=== PATIENT | male | born 1950 | race Caucasian/White ===

== ENCOUNTER 2021-05-26 18:33 | Emergency (ER) | payer MEDICARE, SELFPAY ==
[2021-05-26] MEDS ORDERED: Acetaminophen 500 MG Tab PO ONE (19:19)
[2021-05-26] MEDS ORDERED: Sodium Chloride 0.9% 1,000 ML IV ONE (19:20)
--- NOTE | 2021-05-26 19:25 | EDM.PDOC ---
ED HPI GENERAL MEDICAL PROBLEM - General Chief Complaint: General Stated Complaint: CONFUSSION Time Seen by Provider: 05/26/21 19:00 Source of Information: Reports: Patient, Family History Limitations: Reports: No Limitations - History of Present Illness INITIAL COMMENTS - FREE TEXT/NARRATIVE: c/o fever onset fever at 4p, lives alone, niece lives 2 doors down and brings him to ED, said he seemed mildly confused has had COVID vax x 2, no booster, not had flu vax this yr h/o pneumonia many times as child, not as adult, no cough, never smoked no prior CV ds, no DE onset fever at 4p today, felt weak, niece persuaded him to come to ED Ox3 without overt confusion here, denies pain, no n/v - Related Data Allergies Allergy/AdvReac Type Severity Reaction Status Date / Time No Known Allergies Allergy Verified 09/17/13 13:49 Home Meds: Home Meds Amoxicillin/Potassium Clav [Augmentin 875-125 Tablet] 1 each PO BID #14 tablet 05/26/21 [Rx] Past Medical History - Past Health History Medical/Surgical History: Denies Medical/Surgical History ED ROS GENERAL - Review of Systems Review Of Systems: See Below Constitutional: Reports: Fever, Fatigue HEENT: Reports: No Symptoms Respiratory: Reports: No Symptoms. Denies: Shortness of Breath Cardiovascular: Reports: No Symptoms. Denies: Chest Pain Endocrine: Reports: No Symptoms GI/Abdominal: Reports: No Symptoms : Reports: No Symptoms Musculoskeletal: Reports: No Symptoms Skin: Reports: No Symptoms Neurological: Reports: No Symptoms Psychiatric: Reports: No Symptoms Hematologic/Lymphatic: Reports: No Symptoms Immunologic: Reports: No Symptoms ED EXAM, GENERAL - Physical Exam Exam: See Below Exam Limited By: No Limitations General Appearance: Alert, WD/WN, No Apparent Distress, Other (quite pleasant, good eye contact, conversant, no dyspnea) Eye Exam: Bilateral Eye: EOMI, Normal Inspection, PERRL Ears: Normal External Exam Nose: Normal Inspection, Normal Mucosa, No Blood Throat/Mouth: Normal Inspection, Normal Lips, Normal Teeth, Normal Gums, Normal Oropharynx, Normal Voice Head: Atraumatic, Normocephalic Neck: Normal Inspection, Supple, Non-Tender, Full Range of Motion Respiratory/Chest: No Respiratory Distress, Lungs Clear, Normal Breath Sounds, No Accessory Muscle Use, Chest Non-Tender Cardiovascular: Regular Rate, Rhythm, No Edema, Other (mild tachy) GI/Abdominal: Soft, Non-Tender, No Distention Back Exam: Normal Inspection, Full Range of Motion. No: CVA Tenderness (R), CVA Tenderness (L) Extremities: Normal Inspection, Normal Range of Motion, Non-Tender, No Pedal Edema Neurological: Alert, Oriented, CN II-XII Intact, Normal Cognition, Normal Gait, No Motor/Sensory Deficits Psychiatric: Normal Affect, Normal Mood Skin Exam: Warm, Dry, Intact, Normal Color, No Rash Lymphatic: No Adenopathy Course - Vital Signs Last Recorded V/S: Last Vital Signs Temp 38.4 C H 05/26/21 19:25 Pulse 115 H 05/26/21 18:59 Resp 16 05/26/21 18:59 BP 194/124 H 05/26/21 18:59 Pulse Ox 95 05/26/21 18:59 - Orders/Labs/Meds Orders: Active Orders 24 hr Category Date Time Status Chest 2V [CR] Stat Exams 05/26/21 19:17 Ordered CORONAVIRUS COVID-19 AR [MOLEC] Stat Lab 05/26/21 20:58 Ordered CULTURE BLOOD [BC] Urgent Lab 05/26/21 19:56 Received CULTURE BLOOD [BC] Urgent Lab 05/26/21 20:01 Received Blood Culture x2 Reflex Set [OM.PC] Urgent Oth 05/26/21 19:17 Ordered Isolation [COMM] Routine Oth 05/26/21 19:18 Ordered EKG 12 Lead [EK] Routine Ther 05/26/21 19:17 Ordered Labs: Laboratory Tests 05/26/21 05/26/21 05/26/21 Range/Units 19:56 19:56 19:56 WBC 10.4 H (3.2-10.1) x10-3/uL RBC 4.21 (3.90-5.90) x10(6)uL Hgb 14.7 (12.9-17.7) g/dL Hct 43.7 (38.3-50.1) % MCV 103.7 H (80.8-98.7) fL MCH 34.9 H (27.0-33.3) pg MCHC 33.6 (28.7-35.3) g/dL RDW 12.8 (12.4-15.0) % Plt Count 220 (117-477) x10(3)uL MPV 6.8 (6.7-11.0) fL Neut % (Auto) 88.6 H (40.3-71.8) % Lymph % (Auto) 4.3 L (15.8-45.3) % Newton % (Auto) 6.0 (5.5-15.2) % Eos % (Auto) 0.3 (0.1-6.8) % Baso % (Auto) 0.8 (0.3-3.8) % Neut # (Auto) 9.2 H (1.7-6.9) x10-3/uL Lymph # (Auto) 0.4 L (0.5-4.5) x10-3/uL Newton # (Auto) 0.6 (0.0-1.2) x10-3/uL Eos # (Auto) 0.0 (0.0-0.6) x10-3/uL Baso # (Auto) 0.1 (0.0-0.3) x10-3/uL Sodium 136 (135-145) mmol/L Potassium 3.8 (3.5-5.3) mmol/L Chloride 101 (100-110) mmol/L Carbon Dioxide 22 (21-32) mmol/L BUN 15 (7-18) mg/dL Creatinine 1.5 H (0.70-1.30) mg/dL Est Cr Clr Drug Dosing 44.51 mL/min Estimated GFR (MDRD) 46 L (>60) BUN/Creatinine Ratio 10.0 (9-20) Glucose 106 (80-116) mg/dL Lactic Acid (0.4-2.0) mmol/L Calcium 8.4 L (8.6-10.2) mg/dL Total Bilirubin 1.1 (0.1-1.3) mg/dL AST 35 H (5-25) IU/L ALT 60 H (12-36) U/L Alkaline Phosphatase 83 (56-112) IU/L Troponin I 13.6 (4.0-60.3) pg/mL C-Reactive Protein 1.2 H (0.5-0.9) mg/dL Total Protein 7.0 (6.0-8.0) g/dL Albumin 3.7 (3.2-4.6) g/dL Globulin 3.3 g/dL Albumin/Globulin Ratio 1.1 Urine Color (YELLOW) Urine Appearance (CLEAR) Urine pH (5.0-6.5) Ur Specific Victor (1.010-1.025) Urine Protein (NEGATIVE) mg/dL Urine Glucose (UA) (NORMAL) mg/dL Urine Ketones (NEGATIVE) mg/dL Urine Occult Blood (NEGATIVE) Urine Nitrite (NEGATIVE) Urine Bilirubin (NEGATIVE) Urine Urobilinogen (NEGATIVE) mg/dL Ur Leukocyte Esterase (NEGATIVE) Urine RBC (0-5) Urine WBC (0-5) Ur Squamous Epith Cells (NS,R,O) Urine Bacteria (NS) 05/26/21 05/26/21 Range/Units 19:56 20:25 WBC (3.2-10.1) x10-3/uL RBC (3.90-5.90) x10(6)uL Hgb (12.9-17.7) g/dL Hct (38.3-50.1) % MCV (80.8-98.7) fL MCH (27.0-33.3) pg MCHC (28.7-35.3) g/dL RDW (12.4-15.0) % Plt Count (117-477) x10(3)uL MPV (6.7-11.0) fL Neut % (Auto) (40.3-71.8) % Lymph % (Auto) (15.8-45.3) % Newton % (Auto) (5.5-15.2) % Eos % (Auto) (0.1-6.8) % Baso % (Auto) (0.3-3.8) % Neut # (Auto) (1.7-6.9) x10-3/uL Lymph # (Auto) (0.5-4.5) x10-3/uL Newton # (Auto) (0.0-1.2) x10-3/uL Eos # (Auto) (0.0-0.6) x10-3/uL Baso # (Auto) (0.0-0.3) x10-3/uL Sodium (135-145) mmol/L Potassium (3.5-5.3) mmol/L Chloride (100-110) mmol/L Carbon Dioxide (21-32) mmol/L BUN (7-18) mg/dL Creatinine (0.70-1.30) mg/dL Est Cr Clr Drug Dosing mL/min Estimated GFR (MDRD) (>60) BUN/Creatinine Ratio (9-20) Glucose (80-116) mg/dL Lactic Acid 0.9 (0.4-2.0) mmol/L Calcium (8.6-10.2) mg/dL Total Bilirubin (0.1-1.3) mg/dL AST (5-25) IU/L ALT (12-36) U/L Alkaline Phosphatase (56-112) IU/L Troponin I (4.0-60.3) pg/mL C-Reactive Protein (0.5-0.9) mg/dL Total Protein (6.0-8.0) g/dL Albumin (3.2-4.6) g/dL Globulin g/dL Albumin/Globulin Ratio Urine Color Yellow (YELLOW) Urine Appearance Clear (CLEAR) Urine pH 5.0 (5.0-6.5) Ur Specific Victor 1.030 H (1.010-1.025) Urine Protein Negative (NEGATIVE) mg/dL Urine Glucose (UA) Normal (NORMAL) mg/dL Urine Ketones 15 H (NEGATIVE) mg/dL Urine Occult Blood Negative (NEGATIVE) Urine Nitrite Negative (NEGATIVE) Urine Bilirubin Negative (NEGATIVE) Urine Urobilinogen Normal (NEGATIVE) mg/dL Ur Leukocyte Esterase Negative (NEGATIVE) Urine RBC 0-5 (0-5) Urine WBC 0-5 (0-5) Ur Squamous Epith Cells Rare (NS,R,O) Urine Bacteria Few H (NS) Meds: Medications Discontinued Medications Generic Name Dose Route Start Last Admin Trade Name Freq PRN Reason Stop Dose Admin Acetaminophen 1,000 mg 05/26/21 19:19 05/26/21 19:25 Acetaminophen 500 Mg Tab PO 05/26/21 19:20 1,000 mg ONETIME ONE Administration Sodium Chloride 1,000 mls @ 999 mls/hr 05/26/21 19:20 05/26/21 19:25 Normal Saline IV 05/26/21 20:20 999 mls/hr .BOLUS ONE Administration - Re-Assessments/Exams Free Text/Narrative Re-Assessment/Exam: 05/26/21 21:12 flu test neg, COVID pending pt left AMA, refused head CT, refused CxR, could not be persuaded otherwise niece says he has 1-2 drinks/d altho it is likely that he drinks a lot more EKG 05-26-21 at 19:45 with sinus tach, rate 109, no acute ST changes, no ischemia, no ectopy Departure - Departure Time of Disposition: 21:04 Disposition: Home, Self-Care 01 Condition: Good, Serious Clinical Impression: Fever, Confusion, Left against medical advice, Elevated blood pressure reading, Sinus tachycardia - Discharge Information *PRESCRIPTION DRUG MONITORING PROGRAM REVIEWED*: Not Applicable *COPY OF PRESCRIPTION DRUG MONITORING REPORT IN PATIENT HARISH: Not Applicable Prescriptions: Amoxicillin/Potassium Clav [Augmentin 875-125 Tablet] 1 each PO BID #14 tablet Instructions: Confusion, Fever, Adult Referrals: Ke Santamaria MD [Primary Care Provider] - Forms: ED Department Discharge Additional Instructions: You are leaving the Emergency Department against medical advice. Additional tests need to be done to determine the cause of the fever so that you receive the right treatment. You have had confusion as a result of being ill and my have a brain abscess or brain tumor or other serious life threatening illness. It is dangerous to be home alone when you have confusion. You should not drink alcohol as your risk of falling and sustaining a serious injury is very high. A prescription for the antibiotic Augmentin one tab 2 times a day for 7 days has been sent to your pharmacy. It is unknown whether this is the right antibiotic or whether you even need an antibiotic. Additional tests can be done in the Emergency Department if you are willing to have them done. You can and should return to the Emergency Department at any time for additional tests and evaluation. Sepsis Event Note (ED) - Evaluation Sepsis Screening Result: No Definite Risk - Focused Exam Vital Signs: Vital Signs Temp Temp Pulse Resp BP Pulse Ox 05/26/21 19:25 38.4 C H 05/26/21 18:59 38.4 C H 115 H 16 194/124 H 95 - My Orders Last 24 Hours: My Active Orders 05/26/21 19:17 Chest 2V [CR] Stat Blood Culture x2 Reflex Set [OM.PC] Urgent EKG 12 Lead [EK] Routine 05/26/21 19:18 Isolation [COMM] Routine 05/26/21 19:56 CULTURE BLOOD [BC] Urgent 05/26/21 20:01 CULTURE BLOOD [BC] Urgent 05/26/21 20:58 CORONAVIRUS COVID-19 AR [MOLEC] Stat - Assessment/Plan Last 24 Hours: My Active Orders 05/26/21 19:17 Chest 2V [CR] Stat Blood Culture x2 Reflex Set [OM.PC] Urgent EKG 12 Lead [EK] Routine 05/26/21 19:18 Isolation [COMM] Routine 05/26/21 19:56 CULTURE BLOOD [BC] Urgent 05/26/21 20:01 CULTURE BLOOD [BC] Urgent 05/26/21 20:58 CORONAVIRUS COVID-19 AR [MOLEC] Stat
[2021-05-26] MEDS ORDERED: Amoxicillin/Clavulanate K 875-125 MG Tab PO ONE (21:05)
== END 2021-05-26 21:25 | disposition left against medical advice (07) ==
LOC: FB.ED 18:33
DX: R50.9 Fever, unspecified (principal); R00.0 Tachycardia, unspecified; R41.0 Disorientation, unspecified; I10 Essential (primary) hypertension; Z53.8 Procedure and treatment not carried out for other reasons
CPT/HCPCS: 36415; 80053; 81001; 83605; 84484; 85025; 86140; 87040; 87804; 93005; 99285; A9270; J7030; U0002

== ENCOUNTER 2024-09-02 07:49 | Emergency (ER) | payer MEDICARE, MEDICAID ==
[2024-09-02] MEDS ORDERED: Sulfamethoxazole/Trimethoprim 800-160 MG Tab PO ONE (07:50)
[2024-09-02] MEDS: Ketorolac 30 MG/ML SDV IM ONE (08:28)
[2024-09-02 08:31] LABS: BASOPHILS PERCENT AUTO 0.1 % (0.3-3.8); EOSINOPHILS PERCENT AUTO 0.1 % (0.1-6.8); HEMOGLOBIN 18.8 g/dL (12.9-17.7); LYMPHOCYTES ABSOLUTE AUTO 0.8 x10-3/uL (0.5-4.5); LYMPHOCYTES PERCENT AUTO 7.9 % (15.8-45.3); MEAN CORPUSCULAR HEMOGLOBIN 38.8 pg (27.0-33.3); MEAN CORPUSCULAR HGB CONC 34.9 g/dL (28.7-35.3); MEAN CORPUSCULAR VOLUME 111.1 fL (80.8-98.7); MEAN PLATELET VOLUME 7.4 fL (6.7-11.0); MONOCYTES PERCENT AUTO 9.5 % (5.5-15.2); NEUTROPHILS ABSOLUTE AUTO 8.5 x10-3/uL (1.7-6.9); NEUTROPHILS PERCENT AUTO 82.4 % (40.3-71.8); PLATELET COUNT,PLT 207 x10(3)uL (117-477); RED CELL DISTRIBUTION WIDTH 14.3 % (12.4-15.0); WHITE BLOOD CELL COUNT,WBC 10.3 x10-3/uL (3.2-10.1)
[2024-09-02 08:33] LABS: BLOOD UREA NITROGEN,BUN 12 mg/dL (7-18); BUN/CREATININE RATIO 9.2 (9-20); CARBON DIOXIDE,CO2 26 mmol/L (21-32); CHLORIDE,CL 98 mmol/L (100-110); CREATININE 1.3 mg/dL (0.70-1.30); ESTIMATED GFR 57 mL/min (>60); GLUCOSE RANDOM 115 mg/dL (80-116); POTASSIUM,K 3.7 mmol/L (3.5-5.3); SODIUM,NA 135 mmol/L (135-145)
[2024-09-02 08:40] LABS: RED BLOOD CELL COUNT 4.86 x10(6)uL (3.90-5.90)
== END 2024-09-02 09:00 | disposition home or self-care (01) ==
LOC: FB.ED 07:49
DX: L03.113 Cellulitis of right upper limb (principal); I10 Essential (primary) hypertension; Z79.899 Other long term (current) drug therapy
CPT/HCPCS: 36415; 73080; 80048; 83605; 84550; 85025; 86140; 96372; 99283; A9270; J1885

== ENCOUNTER 2024-11-23 15:05 | Emergency (ER) | payer MEDICARE, MEDICAID ==
[2024-11-23] MEDS ORDERED: Sodium Chloride 0.9% 10 ML Syringe FLUSH PRN (15:24)
[2024-11-23 15:33] LABS: BASOPHILS PERCENT AUTO 0.6 % (0.3-3.8); EOSINOPHILS ABSOLUTE AUTO 0.1 x10-3/uL (0.0-0.6); EOSINOPHILS PERCENT AUTO 1.1 % (0.1-6.8); HEMATOCRIT 49.5 % (38.3-50.1); HEMOGLOBIN 17.1 g/dL (12.9-17.7); LYMPHOCYTES ABSOLUTE AUTO 1.3 x10-3/uL (0.5-4.5); LYMPHOCYTES PERCENT AUTO 17.2 % (15.8-45.3); MEAN CORPUSCULAR HEMOGLOBIN 39.2 pg (27.0-33.3); MEAN CORPUSCULAR HGB CONC 34.6 g/dL (28.7-35.3); MEAN PLATELET VOLUME 7.8 fL (6.7-11.0); MONOCYTES ABSOLUTE AUTO 0.7 x10-3/uL (0.0-1.2); MONOCYTES PERCENT AUTO 9.6 % (5.5-15.2); NEUTROPHILS ABSOLUTE AUTO 5.5 x10-3/uL (1.7-6.9); NEUTROPHILS PERCENT AUTO 71.5 % (40.3-71.8); PLATELET COUNT,PLT 232 x10(3)uL (117-477); RED BLOOD CELL COUNT 4.37 x10(6)uL (3.90-5.90); RED CELL DISTRIBUTION WIDTH 14.4 % (12.4-15.0); WHITE BLOOD CELL COUNT,WBC 7.6 x10-3/uL (3.2-10.1)
[2024-11-23 15:43] LABS: BLOOD UREA NITROGEN,BUN 22 mg/dL (7-18); BUN/CREATININE RATIO 15.7 (9-20); CALCIUM 9.2 mg/dL (8.6-10.2); CARBON DIOXIDE,CO2 24 mmol/L (21-32); CHLORIDE,CL 98 mmol/L (100-110); CREATININE 1.4 mg/dL (0.70-1.30); ESTIMATED GFR 52 mL/min (>60); GLUCOSE RANDOM 110 mg/dL (80-116); POTASSIUM,K 3.6 mmol/L (3.5-5.3); SODIUM,NA 132 mmol/L (135-145)
[2024-11-23 15:49] LABS: A/G RATIO 1.1; ALANINE AMINOTRANSFERASE,ALT 40 U/L (12-36); ALBUMIN 3.9 g/dL (3.2-4.6); ALKALINE PHOSPHATASE 85 IU/L (56-112); ASPARTATE AMNIOTRANSFERASE,AST 20 IU/L (5-25); BILIRUBIN TOTAL 1.7 mg/dL (0.1-1.3); PROTEIN TOTAL,TP 7.5 g/dL (6.0-8.0)
[2024-11-23] MEDS: Labetalol 20 MG/4 ML Syringe IVPUSH ONE ×2 (15:52→16:26)
[2024-11-23 15:55] LABS: MEAN CORPUSCULAR VOLUME 113.1 fL (80.8-98.7)
[2024-11-23 16:19] LABS: INR 1.01 (1.00-1.24); PROTHROMBIN TIME 10.5 sec (9.0-11.1)
[2024-11-23 16:23] LABS: PTT,PARTIAL THROMBOPLSTIN TIME 28.2 SECONDS (24.4-33.2)
[2024-11-23 16:39] LABS: BILIRUBIN,URINE MODERATE (NEGATIVE); GLUCOSE,URINE NORMAL (NORMAL); KETONES,URINE NEGATIVE (NEGATIVE); LEUKOCYTE ESTERASE,URINE LARGE (NEGATIVE); NITRITE,URINE NEGATIVE (NEGATIVE); OCCULT BLOOD,URINE LARGE (NEGATIVE); PROTEIN,URINE 30 mg/dL (NEGATIVE); UROBILINOGEN,URINE 1 mg/dL (NEGATIVE)
[2024-11-23 16:40] LABS: APPEARANCE,URINE CLOUDY (CLEAR); COLOR,URINE YELLOW (YELLOW)
[2024-11-23 16:53] LABS: BACTERIA,URINE MANY (NS); SQUAMOUS EPITHELIAL CELLS,UR NOT SEEN (NS,R,O); WBC,URINE >100 (0-5)
[2024-11-23] MEDS: Levofloxacin/Dextrose 5%-Water 750 MG in Premix Bag 1 BAG IV ONE (17:11)
[2024-11-23] MEDS: Enalaprilat 1.25 MG/ML SDV IVPUSH ONE (18:12)
[2024-11-23] MEDS ORDERED: LORazepam 2 MG/ML SDV IVPUSH ONE (18:41)
== END 2024-11-23 19:15 | disposition left against medical advice (07) ==
LOC: FB.ED 15:05
DX: N39.0 Urinary tract infection, site not specified (principal); I10 Essential (primary) hypertension; R79.1 Abnormal coagulation profile; Z79.899 Other long term (current) drug therapy
CPT/HCPCS: 36415; 70450; 80053; 80307; 81001; 82947; 84484; 85025; 85610; 85730; 87086; 87088; 87186; 93005; 93010; 96365; 96366; 96375; 96376; 99283; 99284; A4353; J1920; J1956; J3490